=== PATIENT | male | born 1985 | race Caucasian/White ===

== ENCOUNTER 2019-10-02 01:52 | Emergency (ER) | payer SELFPAY ==
[~2019-10-02] VITALS: Ht 172.7 cm; Wt 58.9 kg
[~2019-10-02 01:52] MED LIST: HYDR1TAB PO; PRM25T PO
[2019-10-02] MEDS ORDERED: TETRACAINE 0.5% OPHTH SOLN 4 ML BTL (SINGLE DOSE ONLY) OP ONE (02:30)
[2019-10-02] MEDS ORDERED: RX-PREDNISOLONE (PRED FORTE) 1% OPTH 5 ML BTL OP STA (02:49)
[2019-10-02] MEDS ORDERED: BSS 15 ML IR ONE ×2 (03:00→03:30)
[2019-10-02] MEDS ORDERED: FLUORESCEIN (FLUOR-I-STRIPS) 1 MG STRP OU ONE (03:00)
--- NOTE | 2019-10-02 03:26 | ED EENT ---
History of Present Illness General Chief Complaint: Eye Problems Stated Complaint: BURNT EYES WELDING Nursing Triage Note: C/O FLASH BURN FROM WELDING, STATES HAS BEEN FLUSHING OUT HIS EYES FOR ABOUT AN HOUR NOW ADN HAS HAD NO RELIEF FROM THE BURNING. Source: patient Exam Limitations: no limitations History of Present Illness Date Seen by Provider: Oct 02, 2019 Time Seen by Provider: 02:10 Initial Comments This 34-year-old man presents to the emergency room with significant eye pain, watering, and blurred vision after helping a friend well today. He presents by private vehicle. 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 The patient states he was not wearing a gas welder's mask but kept his eyes shut while welding was in progress. He believes he developed a gas welder's keratitis by exposure through his eyelids. He denies any foreign body or mechanical injury to the eye. Allergies and Home Medications Allergies Coded Allergies: No Known Drug Allergies (Unverified , 11/30/10) Patient Home Medication List Home Medication List Reviewed: Yes Review of Systems Review of Systems Constitutional: no symptoms reported Eyes: See HPI Ears: No Symptoms Reported Nose: no symptoms reported Mouth: no symptoms reported Throat: no symptoms reported Respiratory: no symptoms reported Cardiovascular: no symptoms reported Gastrointestinal: no symptoms reported Musculoskeletal: no symptoms reported Skin: no symptoms reported Neurological: No Symptoms Reported Hematologic/Lymphatic: No Symptoms Reported Past Flsylbz-Glkhxs-Nvtdug Hx Past Med/Social Hx: Reviewed and Corrections made Patient Social History Alcohol Use: Rarely Uses Recreational Drug Use: No Smoking Status: Current Everyday Smoker Type Used: Cigarettes Recent Foreign Travel: No Contact w/Someone Who Travel: No Recent Infectious Disease Expo: No Recent Hopitalizations: No Physical Abuse: No Sexual Abuse: No Mistreated: No Fear: No Immunizations Up To Date PED Vaccines UTD: Yes Past Medical History Surgeries: No Respiratory: No Cardiac: No Neurological: No Genitourinary: No Gastrointestinal: No Musculoskeletal: No Endocrine: No HEENT: Yes (PREVIOUS FLASH BURN TO BILATERAL EYES FROM WELDING) Cancer: No Psychosocial: No Integumentary: No Blood Disorders: No Physical Exam Vital Signs Vital Signs - First Documented 10/02/19 02:00 Temp 36.4 Pulse 69 Resp 18 B/P (MAP) 107/77 (87) Pulse Ox 97 Height, Weight, BMI Height: '" Weight: lbs. oz. 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 There was a cloudy appearance to the corneas bilaterally, left greater than right. No distinct abrasion or foreign body was identified in either eye. Progress/Results/Core Measures Results/Orders My Orders Orders - EDUARD SHORE MD Tetracaine 0.5% Ophth Shannon Sdv (Tetracai (10/02/19 02:30) Fluorescein Strips ([id number]-[id number]) (10/02/19 03:00) Balanced Salt Irrigation Soln (Bss Irrig (10/02/19 03:00) Rx-Prednisolone Acetate (Rx-Pred Forte 1 (10/02/19 02:49) Balanced Salt Irrigation Soln (Bss Irrig (10/02/19 03:30) Medications Given in ED Current Medications Medications Dose Ordered Sig/Lynda Route Start Time Stop Time Status Last Admin Dose Admin Balanced Salt Solution 15 ml ONCE ONCE IR 10/02/19 03:00 10/02/19 03:01 DC 10/02/19 03:08 15 ML Balanced Salt Solution 15 ml ONCE ONCE IR 10/02/19 03:30 10/02/19 03:31 DC 10/02/19 03:34 15 ML Fluorescein Sodium 1 mg ONCE ONCE OU 10/02/19 03:00 10/02/19 03:01 DC 10/02/19 03:08 1 MG Tetracaine HCl 1 OR 2 DROPS INTO AFFEC... ONCE ONCE OP 10/02/19 02:30 10/02/19 02:31 DC 10/02/19 02:21 4 ML Vital Signs/I&O 10/02/19 10/02/19 02:00 03:33 Temp 36.4 Pulse 69 54 Resp 18 18 B/P (MAP) 107/77 (87) 114/70 Pulse Ox 97 99 Blood Pressure Mean: 87 Progress Progress Note : Progress Note Case was discussed with Dr. Rodriguez. She requested a floor seen exam be performed. This revealed some tiny punctate lesions on the corneas, left greater than right. Dr. Rodriguez also recommended treatment with a topical steroid. Additionally, she suggested diluting tetracaine in the saline eyedrops. Departure Impression Primary Impression: Welders' keratitis of both eyes Disposition: 01 HOME, SELF-CARE Condition: Improved Departure-Patient Inst. Referrals: JOSETTE NOYOLA OD Patient Instructions: NO INSTRUCTIONS GIVEN Add. Discharge Instructions: Please contact Dr. Noyola's office at 8:00 this morning. They would like to see you in follow-up in the clinic today. In the meantime, use the prednisone (Pred Forte) drops every 4-6 hours. You may additionally use the tetracaine saline mixture one drop in each eye every hour as needed for pain. Using Tylenol and/or ibuprofen may also be helpful in treating the pain. Avoid sunlight or bright light exposure. Please call the emergency room or Dr. Noyola's office if you have any further questions or concerns. All discharge instructions reviewed with patient and/or family. Voiced understanding. Copy Copies To 1: JOSETTE NOYOLA OD, JOSHUA T MD Oct 02, 2019 03:26
[2019-10-02 03:33] VITALS: BP 114/70
== END 2019-10-02 03:40 | disposition home or self-care (01) ==
LOC: EDUNIT# 01:52 → ER 01:53
DX: H16.133 Photokeratitis, bilateral (principal); F17.210 Nicotine dependence, cigarettes, uncomplicated
CPT/HCPCS: 99283